=== PATIENT | female | born 1975 | race Hispanic/Latino ===

== ENCOUNTER 2019-01-31 10:29 | Inpatient (IN) | payer SELFPAY ==
[~2019-01-31] VITALS: Ht 157.5 cm; Wt 83.8 kg
[~2019-01-31 10:29] MED LIST: CLIN150C10 PO; IBUP-2354 PO
[2019-01-31 11:18] LABS: CREATININE 0.8 mg/dL (0.5-1.5); POTASSIUM 4.1 mmol/L (3.5-5.1)
[2019-01-31 11:29] LABS: BASOPHILS % (AUTO) 3.8 % (0.0-5.0); EOSINOPHILS % (AUTO) 7.6 % (0.0-8.0); HEMATOCRIT 30.4 % (36-48); LYMPHOCYTES % (AUTO) 39.8 % (21.0-51.0); MEAN CORPUSCULAR HEMOGLOBIN 18.9 pg (27.0-33.0); MEAN CORPUSCULAR HGB CONC 30.6 g/dL (32.0-36.0); MONOCYTES % (AUTO) 11.3 % (3.0-13.0); NEUTROPHILS % (AUTO) 37.5 % (40.0-77.0); PLATELET COUNT (AUTO) 397 K/uL (130-400); RED CELL DISTRIBUTION WIDTH 19.5 % (11.0-15.5); WHITE BLOOD COUNT (AUTO) 5.4 K/uL (4.8-10.8)
[2019-01-31 11:36] LABS: ALBUMIN 3.7 g/dL (3.5-5.0); BILIRUBIN,TOTAL 0.2 mg/dL (0.2-1.0); TOTAL PROTEIN, SERUM 7.8 g/dL (6.0-8.3)
[2019-01-31 11:52] LABS: INR 0.95 (0.85-1.15); PARTIAL THROMBOPLASTIN TIME 25.2 SEC (26.3-35.5)
[2019-01-31] MEDS ORDERED: ACETAMINOPHEN 325 MG TAB PO PRN ×2 (12:00)
[2019-01-31] MEDS ORDERED: ONDANSETRON HCL 4 MG/2 ML VIAL IV PRN (12:00)
[2019-01-31] MEDS ORDERED: LACTULOSE 20 GM/30 ML UDCUP PO PRN (12:00)
[2019-01-31 12:06] LABS: APPEARANCE,URINE Clear (CLEAR); BILIRUBIN,URINE Negative (NEGATIVE); COLOR,URINE Yellow (YELLOW); GLUCOSE, URINE (UA) Negative (NEGATIVE); KETONES,URINE Negative (NEGATIVE); LEUKOCYTE ESTERASE ,URINE Negative (NEGATIVE); NITRATE,URINE Negative (NEGATIVE); OCCULT BLOOD,URINE Negative (NEGATIVE); PH,URINE 5.5 (5.0-8.0); PROTEIN,URINE Negative (NEGATIVE); UROBILINOGEN,URINE 0.2 mg/dL (0.2-1.0)
[2019-01-31 12:13] LABS: AMPHET/METH SCREEN,URINE NEGATIVE (NEGATIVE); BARBITURATE SCREEN, URINE NEGATIVE (NEGATIVE); BENZODIAZEPINES SCREEN,URINE NEGATIVE (NEGATIVE); CANNABINOID SCREEN,URINE NEGATIVE (NEGATIVE); COCAINE SCREEN,URINE POSITIVE (NEGATIVE); OPIATE SCREEN,URINE NEGATIVE (NEGATIVE); PHENCYCLIDINE SCREEN,URINE NEGATIVE (NEGATIVE)
[2019-01-31] MEDS ORDERED: CEFTRIAXONE SODIUM 1 GM ONE (13:23)
[2019-01-31] MEDS ORDERED: LORATADINE 10 MG TABLET ONE (13:23)
[2019-01-31] MEDS ORDERED: ENOXAPARIN SODIUM 40 MG/0.4 ML SYRINGE SQ ONE (15:03)
[2019-01-31] MEDS ORDERED: ASPIRIN 81MG TAB.CHEW ONE (15:03)
[2019-01-31] MEDS ORDERED: CLINDAMYCIN 600 MG/D5% WATER 50 ML IV ONE (15:03)
[2019-01-31] MEDS: CLINDAMYCIN 600 MG/D5% WATER 50 ML IV SCH (20:00)
[2019-01-31] MEDS: FAMOTIDINE/PF 20 MG/2 ML VIAL IV SCH (21:00)
[2019-02-01 00:04] VITALS: BP 110/66
[2019-02-01] MEDS: CLINDAMYCIN 600 MG/D5% WATER 50 ML IV SCH ×2 (04:25→12:26)
[2019-02-01 04:58] VITALS: BP 105/57
[2019-02-01 07:54] VITALS: BP 115/66
[2019-02-01] MEDS ORDERED: ENOXAPARIN SODIUM 40 MG/0.4 ML SYRINGE SQ SCH (09:00)
[2019-02-01] MEDS ORDERED: ASPIRIN 325 MG TABLET PO SCH ×2 (09:00→11:00)
--- NOTE | 2019-02-01 09:23 | NUR ---
COGNITIVE EVAL COMPLETE. COGNITIVE-LINGUISTIC ABILITIES WITHIN FUNCTIONAL LIMITS. PATIENT INFORMATION: Pt IS A 43 YEAR OLD FEMALE REFERRED FOR A COGNITIVE-LINGUISTIC EVALUATION SECONDARY TO DIAGNOSIS OF TIA VS CVA. Pt COOPERATIVE DURING THE EVALUATION AND SERVED THE PRIMARY INFORMANT FOR MEDICAL AND SOCIAL HISTORY. Pt CURRENTLY ADMITTED SECONDARY TO POSSIBLE TIA AND ACUTE SINUSITIS. Pt HAS A PAST MEDICAL HISTORY SIGNIFICANT FOR SMOKING AND X2. EVALUATION: Pt AAOX3. Pt REQUESTS WANTS AND NEEDS INDEPENDENTLY. Pt INTELLIGIBLE AT 100% ACCURACY TO THE UNFAMILIAR LISTENER. Pt COMMUNICATING AT CONVERSATIONAL LEVEL WITH NO DEFICITS IDENTIFIED AT THIS TIME. Pt COMPLETED COGNITIVE-LINGUISTIC EVALUATION TARGETING: ORIENTATION, ATTENTION/CONCENTRATION, MEMORY (IMMEDIATE, SHORT-TERM AND LONG-TERM), PROBLEM SOLVING, LOGIC/REASONING/INFERENCE, THOUGHT ORGANIZATION, FUNCTIONAL MATH AND TELLING TIME. Pt ABLE TO COMPLETE TASKS WITH CORRECT AND TIMELY ANSWERS TO ALL SECTIONS. G-CODES SPOKEN LANGUAGE EXPRESSION: [id number] Addendum: 02/01/19 at 0926 by FELISA HERNANDEZ [facility] Amended: Links added.
--- NOTE | 2019-02-01 09:27 | NUR ---
DYSPHAGIA EVAL COMPLETE. -S/S OF ASPIRATION. RECOMMEND REGULAR, THIN LIQUID DIET; PILLS WHOLE WITH LIQUIDS. PATIENT INFORMATION: Pt IS A 43 Y.O. FEMALE REFERRED FOR A BEDSIDE DYSPHAGIA EVALUATION SECONDARY TO TIA VS CVA. Pt AAOX3 AND COOPERATIVE DURING THE EVALUATION. Pt CURRENTLY ADMITTED SECONDARY TO TIA VS CVA AND ACUTE SINUSITIS. Pt HAS A PAST HISTORY OF SMOKING AND X2. EVALUATION: SWALLOW FUNCTION AND EFFICIENCY WITHIN FUNCTIONAL LIMITS. ORAL MOTOR STRENGTH, COORDINATION, AND ROM WITHIN FUNCTIONAL LIMITS. LARYNGEAL ELEVATION/EXCURSION STRONG WITH TIMELY PHARYNGEAL RESPONSE. NO OVERT SIGNS OR SYMPTOMS OF ASPIRATION PRESENT AT BEDSIDE. VOCAL QUALITY CLEAR WITH NO THROAT CLEAR OR COUGH RESPONSE PRESENT. RECOMMENDATIONS: 1. REGULAR TEXTURE, THIN LIQUID DIET; PILLS WHOLE WITH LIQUIDS. 2. COMPENSATORY STRATEGIES (PROPHYLAXIS): *SEATED AT 90 DEGREE ANGLE G-CODES SWALLOWING: [id number] Addendum: 02/01/19 at 0932 by TABITHA SOSA Amended: Links added.
--- NOTE | 2019-02-01 10:07 | NUR ---
[facility] [phone]. Pt works, is independent, drives, no DME or in home care services. Pt seen at [facility], uses [facility]. Denies dc needs, plan is home at or Addendum: 02/01/19 at 1008 by ADRIANNE MENDES Amended: Links added.
[2019-02-01] MEDS: FAMOTIDINE/PF 20 MG/2 ML VIAL IV SCH (10:33)
[2019-02-01] MEDS ORDERED: AMOX-429 PO (11:10)
[2019-02-01] MEDS ORDERED: ASPI-555 PO (11:10)
[2019-02-01 11:29] VITALS: BP 126/67
--- NOTE | 2019-02-01 11:33 | NUR ---
PT IN NO DISTRESS- DR MACK HAS CLEARED HER FOR DISCHARGE.
[2019-02-01 15:28] VITALS: BP 117/64
--- NOTE | 2019-02-01 15:40 | NUR ---
PT DISCHARGED. TO CAR VIA WHEELCHAIR . PRINTED AND VERBAL DISCHARGE INSTRUCTION GIVEN. VERBALIZES UNDERSTANDING Addendum: 02/01/19 at 1541 by ABRAM RADER RN RN ENCOURAGED TO STOP DRUG USE
== END 2019-02-01 15:41 | disposition home or self-care (01) | DRG 57 ==
LOC: EDH 10:29 → OBSVTOIN 10:30 → EDHIP 10:30 → 2DH 02-01 00:06
PROVIDERS: ADMIT Internal Medicine; ATTEND Internal Medicine
DX: G81.94 Hemiplegia, unspecified affecting left nondominant side (principal); F14.90 Cocaine use, unspecified, uncomplicated; F17.210 Nicotine dependence, cigarettes, uncomplicated; Z82.0 Family history of epilepsy and other diseases of the nervous system; Z82.3 Family history of stroke; Z82.49 Family history of ischemic heart disease and other diseases of the circulatory system; Z82.5 Family history of asthma and other chronic lower respiratory diseases; Z83.3 Family history of diabetes mellitus
CPT/HCPCS: 36415; 70450; 70551; 71045; 80053; 80305; 81003; 82550; 82948; 83874; 84484; 85025; 85610; 85730; 92522; 92610; 93005; 93880; 99291; C8929; G0378; J0696; J1650; J3490